=== PATIENT | female | born 1955 | race Caucasian/White ===

== ENCOUNTER 2019-09-16 13:16 | Emergency (ER) | payer MEDICARE, MEDICAID ==
[~2019-09-16] VITALS: Ht 152 cm; Wt 115.0 kg
[~2019-09-16 13:16] MED LIST: ALBU17AE23; BUDE6HFA; CPR500T PO; DULO60CA6; ENXP40I.4 SQ; FLC150T PO; FURO20TA4; IBP600T1 PO; INSU100I17 SQ; INSU100V6 SQ; LISI20TA PO; LVT.112T; METF-380 PO; NAPR-243; OMEP20CA12 PO; PIOG45TA; ROSU20TA14; TRM50T PO; TROS60CA
--- NOTE | 2019-09-16 13:47 | ED Lower Extremity ---
General Chief Complaint: Lower Extremity Stated Complaint: LT FOOT INJ Source: patient Exam Limitations: no limitations (IBETH CRUZ MED STUDENT) History of Present Illness Date Seen by Provider: Sep 16, 2019 Time Seen by Provider: 13:39 Initial Comments Pt ambulates to ED with CC of foot pain. Pain is sharp, localized to fifth metatarsal of left foot, made worse with walking, palpation and weight-bearing and not improved with 800mg ibuprofen. States on 09/11/2019 she tripped over her dog, striking concrete with the lateral surface of her left foot. She began using a cane and walking on the medial aspect of her left food and has been ambulating with success. She struck her foot again while wearing flip flops and catching the front on a step, causing her to strike lateral left foot first against concrete today. Onset: just prior to arrival Pain/Injury Location: left foot Method of Injury: direct blow Modifying Factors: Improves With Cold Therapy; Worse With Movement (IBETH SWARTZ MED STUDENT) Onset: just prior to arrival Pain/Injury Location: left foot Method of Injury: direct blow Modifying Factors: Improves With Cold Therapy; Worse With Movement (SONAM HORTON MD) Allergies and Home Medications Allergies Coded Allergies: No Known Drug Allergies (Verified , 09/03/09) Home Medications Enoxaparin Sodium 40 Mg/0.4 Ml Disp.syrin, 1 EACH SQ DAILY, (Reported) Ibuprofen 600 Mg Tablet, 1 EACH PO Q6H PRN, (Reported) Insulin Aspart 100 Unit/1 Ml Insuln.pen, 12 UNIT SQ TID, (Reported) Insulin Glargine,Hum.rec.anlog 100 Unit/1 Ml Vial, 30 UNITS SQ HS, (Reported) half dose this evening or hold if BS low Metformin Hcl 1,000 Mg Tablet, 1 EACH PO BID WITH MEALS, (Reported) hold til after ct Tramadol Hcl 50 Mg Tab, 100 MG PO Q12H PRN, (Reported) Patient Home Medication List Home Medication List Reviewed: Yes (IBETH CRUZ MED STUDENT) Home Medication List Reviewed: Yes (SONAM HORTON MD) Review of Systems Constitutional: No chills, No fever, No malaise, No weakness EENTM: No hearing loss, No ear pain, No eye pain, No vision loss Respiratory: No cough, No dyspnea on exertion, No short of breath Cardiovascular: No chest pain, No edema Gastrointestinal: No abdominal pain, No constipation; diarrhea (ongoing, manages with medication); No nausea, No vomiting Genitourinary: No incontinence, No pain Musculoskeletal: see HPI; No back pain, No joint pain Skin: No lesions, No lumps, No rash Psychiatric/Neurological: Denies Anxiety, Denies Depressed, Denies Headache (IBETH CRUZ MED STUDENT) Musculoskeletal: joint pain, muscle pain; No muscle weakness Skin: No change in color, No lesions, No lumps Psychiatric/Neurological: No Symptoms Reported (SONAM HORTON MD) Past Ltriyzw-Xudxma-Hxfelh Hx Past Med/Social Hx: Reviewed Nursing Past Med/Soc Hx (SONAM HORTON MD) Patient Social History Recent Foreign Travel: No (IBETH CRUZ MED STUDENT) Past Medical History Reproductive Disorders: No (IBETH CRUZ MED STUDENT) Family Medical History Reviewed Nursing Family Hx (SONAM HORTON MD) Cancer (father), Diabetes (mother) (IBETH CRUZ MED STUDENT) Physical Exam Vital Signs Vital Signs - First Documented 09/16/19 13:30 Temp 36.4 Pulse 78 Resp 16 B/P (MAP) 140/68 (92) Pulse Ox 94 (SONAM HORTON MD) Vital Signs Capillary Refill : (IBETH CRUZ MED STUDENT) Height, Weight, BMI Height: '" Weight: lbs. oz. kg; BMI Method:Stated General Appearance: WD/WN, no apparent distress HEENT: PERRL/EOMI, pharynx normal Neck: non-tender, supple Cardiovascular: regular rate, rhythm, no edema, no gallop, no murmur Respiratory: chest non-tender, lungs clear, normal breath sounds, no respiratory distress, no accessory muscle use Gastrointestinal: non tender, soft Back: no CVA tenderness, no vertebral tenderness Knees: bilateral knee non-tender, bilateral knee normal inspection Ankles: bilateral ankle non-tender, bilateral ankle normal inspection; left ankle limited range of motion Feet: right foot non-tender, right foot normal inspection; left foot bone tenderness (along base of fifth metatarsal ), left foot pain, left foot swelling Neurologic/Tendon: normal sensation, normal motor functions, normal tendon functions Neurologic/Psychiatric: alert, oriented x 3 Skin: normal color, warm/dry (IBETH CRUZ,MED STUDENT) General Appearance: WD/WN, no apparent distress Cardiovascular: regular rate, rhythm, no murmur Respiratory: lungs clear, normal breath sounds Feet: left foot bone tenderness (along base of fifth metatarsal ), left foot pain, left foot swelling Neurologic/Psychiatric: no motor/sensory deficits, alert, oriented x 3 (SONAM HORTON MD) Progress/Results/Core Measures Results/Orders My Orders Orders - SONAM HORTON MD Foot 3 View Left (09/16/19 13:42) (SONAM HORTON MD) Vital Signs/I&O 09/16/19 13:30 Temp 36.4 Pulse 78 Resp 16 B/P (MAP) 140/68 (92) Pulse Ox 94 (SONAM HORTON MD) Progress Progress Note : Time: 14:12 Progress Note Seen and evaluated. Will obtain foot series of L foot 1430: Xray reveals minimally displaced fracture of the left fifth metatarsal. Placing patient in boot with instructions to have absolutely no weight bearing. Will reach out to ortho regarding follow up. (IBETH CRUZ,MED STUDENT) Progress Note : Progress Note I have seen and evaluated the patient and agree with above except as indicated. I have directed the plan of care. Patient is here with left foot pain along the fifth metatarsal after a fall several days ago and then reinjured today while in flip-flops and walking up the steps. She came down on the ball of her foot on the area of the fifth and had significant pain afterwards. Ultimately presented here. Evaluation as above. X-ray left foot ordered. This does show nondisplaced fracture of the fifth metatarsal. I did discuss the case with Dr. Garber. We will place the patient in the boot and he will see her in [place] or she [facility] Patient would prefer to stay in [place] and [facility] information will be given to her. Discharged home with return precautions. Patient verbalize understanding instructions and agreement with plan. (SONAM HORTON MD) Diagnostic Imaging Diagonstic Imaging: Xray Plain Films/CT/US/NM/MRI: other (left foot ) Comments [facility], [facility]. [place], [place] NAME: [facility] REC#: [id number] PT STATUS: REG ER : 1955 PHYSICIAN: SONAM HORTON MD ADMIT DATE: 09/16/19/ER FS Draft Date of Exam:09/16/19 FOOT 3 VIEW LEFT INDICATION: Pain status post injury. COMPARISON: None. FINDINGS: Three radiographic views of the left foot were obtained. There is acute oblique oriented minimally displaced fracture involving the distal shaft of the fifth metatarsal. There is no intra-articular extension. Joint spaces are otherwise maintained. No other acute osseous abnormalities are identified. No unexpected radiopaque foreign bodies are seen. Included portion of the distal tibia on the oblique view shows oblique oriented lucency as well. This however appears to be on the basis of overlying skinfold. IMPRESSION: 1. Acute fracture of the fifth metatarsal as described above. 2. Curvilinear lucency projecting over the distal tibia only well visualized on the oblique view. Again, this is felt to be artifactual and related to superimposed skinfold. If however there is pain to this area, dedicated evaluation with ankle radiographs is recommended. Dictated on workstation # [id number] Dict: 09/16/19 1412 Trans: 09/16/19 1418 [id number] Interpreted by: TENISHA BENNETT MD Electronically signed by: (IBETH CRUZ,MED STUDENT) Diagonstic Imaging: Xray Plain Films/CT/US/NM/MRI: other (left foot ) (SONAM HORTON MD) Departure Impression Primary Impression: Fracture of fifth metatarsal bone of left foot Qualified Codes: S92.355A - Nondisplaced fracture of fifth metatarsal bone, left foot, initial encounter for closed fracture Disposition: 01 HOME, SELF-CARE Condition: Improved Departure-Patient Inst. Decision time for Depature: 14:46 (SONAM HORTON MD) Referrals: MATTEO CRISOSTOMO DO (PCP/Family) Primary Care Physician AGAPITO GARBER MD Patient Instructions: Foot Fracture (DC) Add. Discharge Instructions: All discharge instructions reviewed with patient and/or family. Voiced understanding. You have a fracture of the fifth metatarsal on the left. You need to follow-up with an orthopedist of your choosing. You may follow up with [facility] here in [place]. Call his office at [phone]. Use boot at all times while moving about. You may take it off to sleep. Do not stand on the foot at all without the boot on. Return for worse pain, swelling, weakness or other concerns as needed. You may continue ibuprofen and/or Tylenol as needed for pain. Use ice packs to area of concern 20 minutes per hour for the next day or 2. IBETH CRUZ,MED STUDENT Sep 16, 2019 13:47 SONAM HORTON MD Sep 16, 2019 14:48
--- NOTE | 2019-09-16 14:18 | Diagnostic Imaging Report ---
INDICATION: Pain status post injury. COMPARISON: None. FINDINGS: Three radiographic views of the left foot were obtained. There is acute oblique oriented minimally displaced fracture involving the distal shaft of the fifth metatarsal. There is no intra-articular extension. Joint spaces are otherwise maintained. No other acute osseous abnormalities are identified. No unexpected radiopaque foreign bodies are seen. Included portion of the distal tibia on the oblique view shows oblique oriented lucency as well. This however appears to be on the basis of overlying skinfold. IMPRESSION: 1. Acute fracture of the fifth metatarsal as described above. 2. Curvilinear lucency projecting over the distal tibia only well visualized on the oblique view. Again, this is felt to be artifactual and related to superimposed skinfold. If however there is pain to this area, dedicated evaluation with ankle radiographs is recommended. Dictated by: Dictated on workstation # [id number]
[2019-09-16 15:06] VITALS: BP 126/79
== END 2019-09-16 15:06 | disposition home or self-care (01) ==
LOC: EDUNIT# 13:16 → ER FS 13:18
DX: S92.355A Nondisplaced fracture of fifth metatarsal bone, left foot, initial encounter for closed fracture (principal); Z79.4 Long term (current) use of insulin; W01.198A Fall on same level from slipping, tripping and stumbling with subsequent striking against other object, initial encounter
CPT/HCPCS: 73630

== ENCOUNTER → 2019-10-04 | Outpatient (CLI) | payer MEDICARE, MEDICAID ==
--- NOTE | 2019-10-04 15:10 | Diagnostic Imaging Report ---
EXAMINATION: Left foot radiographs, 3 views. COMPARISON: September 16, 2019. HISTORY: 64-year-old female, history of fifth metatarsal fracture. Follow-up exam. FINDINGS: There is an obliquely oriented mildly displaced fracture involving the mid to distal diaphysis of the fifth metatarsal. There is unchanged fracture alignment. There is no interval periosteal reaction or bony callus bridging. There is no identified new fracture. Joint spaces are well preserved. IMPRESSION: 1. Unchanged alignment and appearance of the mildly displaced oblique fracture of the fifth metatarsal without significant interval healing response. Dictated by: Dictated on workstation # [id number]
== END ==
LOC: RAD FS 13:08
PROVIDERS: ATTEND Nurse Practitioner
DX: S92.352D Displaced fracture of fifth metatarsal bone, left foot, subsequent encounter for fracture with routine healing (principal)
CPT/HCPCS: 73630

== ENCOUNTER → 2019-10-25 | Outpatient (CLI) | payer MEDICARE, MEDICAID ==
--- NOTE | 2019-10-25 16:22 | Diagnostic Imaging Report ---
INDICATION: Followup fracture. COMPARISON: 10/04/2019. FINDINGS: Three radiographic views of the left foot were obtained. Again identified is a nonacute obliquely oriented fracture of the distal fifth metatarsal. There has been interval progression of sclerosis about the fracture site, consistent with partial interval healing. The fracture line, however, remains conspicuous. No new acute fracture or dislocation of the left foot is identified. The joint spaces are maintained. No unexpected radiopaque foreign bodies are seen. IMPRESSION: 1. Partial interval healing in regards to the previously described left fifth metatarsal fracture. 2. No new acute osseous abnormality of the left foot. Dictated by: Dictated on workstation # [id number]
== END ==
LOC: RAD FS 12:53
PROVIDERS: ATTEND Nurse Practitioner
DX: S92.352D Displaced fracture of fifth metatarsal bone, left foot, subsequent encounter for fracture with routine healing (principal)
CPT/HCPCS: 73630

== ENCOUNTER → 2022-10-08 | Outpatient (CLI) | payer MEDICARE, MEDICAID ==
--- NOTE | 2022-10-08 17:07 | Diagnostic Imaging Report ---
EXAMINATION: Chest 2 view HISTORY: Chest pain COMPARISON: None available. FINDINGS: The lungs are clear without edema or pneumonia. No pleural effusion or pneumothorax. Heart size is normal. IMPRESSION: 1. Clear lungs. Dictated by: Dictated on workstation # [id number]
== END ==
LOC: RAD FS 11:35
PROVIDERS: ATTEND Nurse Practitioner Family
DX: R07.9 Chest pain, unspecified (principal); M25.511 Pain in right shoulder; W10.1XXA Fall (on)(from) sidewalk curb, initial encounter
CPT/HCPCS: 71046